=== PATIENT | male | born 1985 | race Caucasian/White ===

== ENCOUNTER 2016-11-13 17:38 | Emergency (ER) | payer BC ==
--- NOTE | 2016-11-13 17:59 | EDM.PDOC ---
<DonnaStephen Geeta - Last Filed: 11/13/16 19:02> ED HPI LOWER BACK PAIN/INJURY - General Chief Complaint: Back Pain or Injury Stated Complaint: UNABLE TO BEAR WEIGHT Time Seen by Provider: 11/13/16 17:59 - History of Present Illness INITIAL COMMENTS - FREE TEXT/NARRATIVE: 31-year-old male presents emergency room with back pain and difficulty with ambulation. 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 He has chronic radicular pain down his right leg. Patient denies any loss of bowel or bladder control. Around 10:00 this morning the patient was lifting the tongue of a small utility trailer felt a pop in his back, and this brought him to his knees. He states he has numbness and tingling down both legs at this time. The patient believes that his symptoms in his right leg or chronic and the symptoms down his left leg are new. The patient is most comfortable in a sitting position it was best in a wheelchair recheck problems of up with his arms he is afraid to lay back because of the difficulties he has trying to get up. - Related Data Allergies/ADRs: Allergies Allergy/AdvReac Type Severity Reaction Status Date / Time No Known Allergies Allergy Verified 11/13/16 17:56 Home Meds: Home Meds Buprenorphine [Butrans] 1 each TD WEEKLY 07/22/15 [History] oxyCODONE [Oxycodone HCl] 10 mg PO Q4HR PRN 07/22/15 [History] Dicyclomine HCl [Bentyl] 20 mg PO Q6HR PRN #6 tablet 08/30/15 [Rx] Levofloxacin [Levaquin] 500 mg PO DAILY #10 tab 08/30/15 [Rx] Ondansetron [Zofran] 4 mg BUCCAL Q6H PRN #5 tab 08/30/15 [Rx] oxyCODONE HCl/Acetaminophen [Percocet 10-325 mg Tablet] 1 each PO Q4H PRN #12 tablet 08/30/15 [Rx] Cyclobenzaprine [Flexeril] 5 - 10 mg PO TID PRN #15 tablet 11/13/16 [Rx] Prednisone [IMW: predniSONE] 40 mg PO WITHBREAKFAST #10 tab 11/13/16 [Rx] Past Medical History - Past Health History Medical/Surgical History: Denies Medical/Surgical History Musculoskeletal History: Reports: Other (see below) Other Musculoskeletal History: torn discs in back. Curently on Butrans patch for chronic pain relief.. - Past Surgical History HEENT Surgical History: Reports: CALEB Musculoskeletal Surgical History: Reports: Other (see below) Other Musculoskeletal Surgeries/Procedures:: both elbows have ulnar nerve removed, plastic sx to both hands Social & Family History - Tobacco Use Smoking Status *Q: Current Every Day Smoker Years of Tobacco use: 7 Packs/Tins Daily: 1 - Alcohol Use Days Per Week of Alcohol Use: 0 - Recreational Drug Use Recreational Drug Use: No ED ROS GENERAL - Review of Systems Review Of Systems: See Below Constitutional: Reports: no symptoms Respiratory: Reports: No Symptoms Cardiovascular: Reports: No symptoms GI/Abdominal: Reports: No symptoms ED EXAM,LOWER BACK PAIN/INJURY - Physical Exam Exam: See Below Exam Limited By: No limitations General Appearance: alert, no apparent distress Respiratory/Chest: no respiratory distress, lungs clear, normal breath sounds Cardiovascular: regular rate, rhythm, no edema, no murmur Back Exam: vertebral tenderness (He has tenderness in the lower lumbar region) Extremities: other (Distracted straight leg raises seem to do okay he is more comfortable in the sitting position with his legs extended. He has numbness along the her aspect of his feet he has a tickling sensation between his first and second toes bilaterally and to a lesser degree in the L5 area. His sensation changes or new on the left side seem to be chronic on the right side) Neurological: alert, normal mood/affect Course - Vital Signs Last Recorded V/S: Last Vital Signs Temp 98.7 F 11/13/16 17:56 Pulse 85 11/13/16 17:56 Resp 18 11/13/16 17:56 BP 132/84 11/13/16 17:56 Pulse Ox 98 11/13/16 17:56 - Orders/Labs/Meds Orders: Active Orders 24 hr Category Date Time Status Lumbar Spine 2 or 3V [CR] Stat Exams 11/13/16 18:17 Taken Meds: Medications Discontinued Medications Generic Name Dose Route Start Last Admin Trade Name Freq PRN Reason Stop Dose Admin Cyclobenzaprine HCl 10 mg 11/13/16 18:27 11/13/16 18:53 Flexeril PO 11/13/16 18:28 10 mg ONETIME ONE Administration Hydromorphone HCl 1 mg 11/13/16 20:36 11/13/16 20:47 Dilaudid IM 11/13/16 20:37 1 mg ONETIME ONE Administration Ketorolac Tromethamine 60 mg 11/13/16 18:29 11/13/16 18:53 Toradol IM 11/13/16 18:30 60 mg ONETIME ONE Administration Lorazepam 1 mg 11/13/16 20:55 11/13/16 21:03 Ativan PO 11/13/16 20:56 1 mg ONETIME ONE Administration Prednisone 40 mg 11/13/16 20:58 11/13/16 21:10 Prednisone PO 11/13/16 20:59 40 mg ONETIME ONE Administration - Re-Assessments/Exams Free Text/Narrative Re-Assessment/Exam: 11/13/16 19:04 Patient is given 60 mg of IM Toradol 10 mg of Flexeril x-rays have been reviewed he's lost his lordotic curvature no acute fracture dislocation seen good maintenance of discs spaces. At this time is change of shift further evaluation and disposition per Zac Salas. Departure - Departure Disposition: Home, Self-Care 01 Clinical Impression: Low back pain radiating to both legs Prescriptions: Cyclobenzaprine [Flexeril] 5 - 10 mg PO TID PRN #15 tablet PRN Reason: Pain Prednisone [IMW: predniSONE] 40 mg PO WITHBREAKFAST #10 tab Instructions: Back Injury Prevention, [id number], Muscle Strain, [id number] , Back Pain, Adult, [id number], Pain Medicine Instructions, [id number], Chronic Back Pain Referrals: Leyda Norman NP [Primary Care Provider] - Forms: ED Department Discharge Additional Instructions: Take the flexeril 1-2 tabs three times a day as needed for back pain/spasms. Utilize warm compress to your back as needed for pain. Continue taking oxycodone as prescribed. You may increase frequency of oxycodone use to 4 times a day dependent on pain. Take ibuprofen 400mg every 6 hours for pain. Suggest taking pepcid 20mg daily while on prednisone and taking ibuprofen. Followup with your spine specialists for reevaluation and treatment. No driving this evening or while taking the flexeril and oxycodone. Beaware taking flexeril and oxycodone can cause increased drowsiness. Return back to the E.D. for any new or worsening symptoms. <SalasZac diaz O - Last Filed: 11/13/16 21:52> Course - Re-Assessments/Exams Free Text/Narrative Re-Assessment/Exam: 11/13/16 20:28 Reassessment, Patient has received minimal relief with the above therapies. Vital signs are stable. He appears to be in no distress. I personally reexaminaed the patient. Upon examination of the lumbar spine no tenderness noted on palpation of the paraspinal muscles or vertebral column. Unalbe receiprocate any pain at all with palpation. No sensory deficits noted. Straight leg raise was negative bilaterally. No weakness noted to dorsi/plantar flexion. Unable to completely assess strenght of lower extremities due to severe pain to the lumbar region with doing so. Since recent event states he has increased pain to his lumbar spine with intermittent sciatica to right and left leg. States the right leg he normally has from previous injuries. States he has a herniation at his disc at L4-L5. States what is different is now has some sciatica to his left leg with recent events. He does take oxycodone 5 mg twice a day. He is attempting to decrease the narcotic use. He has appointment with piercing specialist to map out the nerves where the pain is coming from to kill them. States that appointment is coming up. Otherwise he receives scheduled steroid injections with some relief. Patient was adamant did not have any narcotics during his ER visit. He has agreed to have an IM injection of Dilaudid 1 mg. Patient is concerned that he may have structural abnormalities that require MRI. Will discuss with Dr. Ramirez in regards to need. 11/13/16 20:55 Discussed with patient with Dr. Limon. He suggests giving patient ativan 1mg and prednisone 40 mg PO. Does not believe MRI is warranted at this time. Suggests getting the pain and muscle spasms undercontrol. 11/13/16 21:37 Reassessment, pain has improved with the above therapies. He was able to get up and walk a few steps with no assistance. Pain was localized to his lumbar spine. He had no radiculopathy with ambulation. Will discharge patient home with instructions as documented. 11/13/16 21:51 Departure - Departure Time of Disposition: 21:38 Condition: fair
[2016-11-13 18:01] VITALS: BP 132/84
[2016-11-13] MEDS ORDERED: Cyclobenzaprine 10 MG Tab PO ONE (18:27)
[2016-11-13] MEDS ORDERED: Ketorolac 60 MG/2 ML SDV IM ONE (18:29)
[2016-11-13] MEDS ORDERED: HYDROmorphone 1 MG/ML Syringe IM ONE (20:36)
[2016-11-13] MEDS ORDERED: LORazepam 1 MG Tab PO ONE (20:55)
[2016-11-13] MEDS ORDERED: predniSONE 20 MG Tab PO ONE (20:58)
--- NOTE | 2016-11-14 11:58 | CR ---
Lumbar spine: AP, lateral and coned-down lateral views centered to the lumbosacral junction were obtained. Comparison: No previous lumbar spine imaging. Vertebral body heights and disc spaces are maintained. Very minimal posterior osteophyte noted off the inferior endplate of L5. Pedicles as well as transverse and spinous processes are intact. No subluxation or fracture is seen. Impression: 1. Minimal posterior spurring at L5-S1. 2. Three-view lumbar spine study is otherwise unremarkable. Diagnostic code #1
== END 2016-11-13 22:00 | disposition home or self-care (01) ==
LOC: JD.ED 17:38
DX: M54.5 Low back pain (principal); F17.210 Nicotine dependence, cigarettes, uncomplicated; Z79.899 Other long term (current) drug therapy
CPT/HCPCS: 72100; 96372; 99283; A9270; J1170; J1885; 99284